=== PATIENT | male | born 1950 | race Caucasian/White ===

== ENCOUNTER 2016-05-21 05:32 | Day surgery (SDC) | payer BC ==
[~2016-05-21] VITALS: Ht 167.6 cm; Wt 159.9 kg
--- NOTE | ~2016-05-21 | OR ---
ADMIT: 05/21/2016 RM/LOC: [facility] MR#: [id number] [facility] [address] [address] [facility] [address] [place] [id number] Operative/Delivery Room Report SEX: M AGE: 65 : 1950 SURGERY DATE: 05/21/2016 SURGEON: Chas Santos MD PROCEDURES: Complete colonoscopy with polypectomy using cold biopsy forceps. PREOPERATIVE DIAGNOSES: 1. History of colon polyps. 2. Intermittent rectal bleeding. POSTOPERATIVE DIAGNOSIS: 1. A 5 mm polyp at 75 cm in transverse colon. 2. Polyps varying from 20-25 cm in the sigmoid colon, hyperplastic appearance, quite small, occasional diverticular disease. COMPLICATIONS: None immediate. INDICATION FOR PROCEDURE: He has a history of colon polyps. He has also had some intermittent rectal bleeding. Therefore, he is due for repeat surveillance colonoscopy. DESCRIPTION OF PROCEDURE: After the patient was informed the risks, benefits, and alternatives of the procedure, informed consent was obtained. He was taken back to the GI lab, placed in left lateral decubitus position. Sedation was provided by the Anesthesia service. Once appropriately sedated, rectal exam revealed good sphincter tone without palpable mass or lesions. Colonoscope was introduced per rectum, passed into the cecum without difficulty. Image #2/4 does reveal the appendiceal orifice. This was confirmed with usual landmarks. The ileocecal valve was then intubated revealing normal-appearing terminal ileum. The scope was removed back in the cecum and slowly removed. Visualization of remainder of colonic mucosa, prep ADMIT: 05/21/2016 RM/LOC: [facility] MR#: [id number] [address] [address] ANDREINA FIGUEROA [address] [place] [address] [place] [id number] Operative/Delivery Room Report SEX: M AGE: 65 : 1950 was adequate. At 75 cm in transverse colon there was noted to be a small 5 mm polyp, as revealed in image #1/4, biopsies were taken. Complete resolution of polyp. Occasional left-sided diverticular disease was noted. Then at 20-25 cm in sigmoid colon, there were two polyps, both hyperplastic in appearance approximately 4 mm size and revealed in image #3 and image #4. Biopsies were taken. Complete resolution of these polyps. One in the rectal vault, the scope was retroflexed revealing no . Scope was then straightened, procedure terminated, tolerated without complication and was transferred to the recovery room in stable condition. Follow up with Dr. Santos one week ago, sooner if needed. Chas Santos MD/ ekaterina JOB #: [id number] CC: Chas Santos, Attending Physician Holden Houston, Family Physician Holden Houston MD
--- NOTE | 2016-06-12 19:33 | HP ---
ADMIT: 05/21/2016 RM/LOC: [facility] MR#: [id number] [facility] [address] [place], [place] [address] ANDREINA FIGUEROA [address] [place] [address] Pre-OP History and Physical SEX: M AGE: 65 : 1950 DATE OF SERVICE: CHIEF COMPLAINT: History of colon polyps. HISTORY OF PRESENT ILLNESS: This is a 65-year-old, white male, normally cared for by Dr. Houston, who has a history of colon polyps. He is due for repeat evaluation. He has also had occasional blood on the paper with wiping; therefore, we are proceeding with a repeat colonoscopy. PAST MEDICAL HISTORY: Remarkable for DJD, atrial fibrillation, and obstructive sleep apnea. PAST SURGICAL HISTORY: Include bilateral total knee arthroplasties, left heel surgery, and left cataract surgery. CURRENT MEDICATIONS: Include: 1. Farheen. 2. Xarelto. 3. Elidel. 4. Lasix. 5. Diltiazem. 6. Flonase. 7. Celebrex. 8. Tylenol. 9. Aspirin. 10.Multivitamin. 11.Saw palmetto. ALLERGIES: OMNICEF. FAMILY HISTORY: Father , had coronary disease, and lung cancer. Mother , had DJD and dementia. SOCIAL HISTORY: Does not smoke. Occasional alcohol use. He is a heavy equipment operator apprentice. REVIEW OF SYSTEMS: GENERAL: No fevers or chills. HEENT: No headaches, blurred vision, or double vision. CARDIAC: No chest pains. PULMONARY: No shortness of breath. GASTROINTESTINAL: No nausea, vomiting, or diarrhea. GENITOURINARY: No dysuria, urgency, or frequency. ENDOCRINE: Polyuria or polydipsia. PSYCHIATRIC: No depression. OBJECTIVE: VITAL SIGNS: Blood pressure is 140/78, pulse 63, respirations 20, temp 98.3. GENERAL: He is in no acute distress. He is alert, oriented. HEENT: Pupils are reactive. Conjunctivae are clear. ADMIT: 05/21/2016 RM/LOC: [facility] MR#: [id number] [id number] [address] ANDREINA FIGUEROA [address] [place] [address] Pre-OP History and Physical SEX: M AGE: 65 : 1950 NECK: Soft and supple. LUNGS: With decreased breath sounds, but appear clear. HEART: Irregular. ABDOMEN: Obese, soft, nontender. EXTREMITIES: No cyanosis. No clubbing. ASSESSMENT: 1. History of colon polyps. 2. Intermittent rectal bleeding. PLAN: I did talk to him about the risks, benefits, and alternatives of colonoscopy, which would include but not limit to colon perforation requiring immediate surgery, bleeding, or incomplete exam was advised, and he understands. Handout was given, wishes to proceed. We will get this performed and report back to Dr. Houston. Chas Santos MD/ ekaterina JOB #: [id number] CC: Chas Santos, Attending Physician UNKNOWN, Family Physician
== END 2016-05-21 08:55 | disposition home or self-care (01) ==
LOC: SSS 05:32
PROC: 0DBL8ZX Excision of Transverse Colon, Via Natural or Artificial Opening Endoscopic, Diagnostic (ICD-10-PCS; principal; 2016-05-21)
PROC: 0DBN8ZX Excision of Sigmoid Colon, Via Natural or Artificial Opening Endoscopic, Diagnostic (ICD-10-PCS; principal; 2016-05-21)
DX: D12.3 Benign neoplasm of transverse colon (principal); K63.5 Polyp of colon; I48.91 Unspecified atrial fibrillation; M19.90 Unspecified osteoarthritis, unspecified site; G47.33 Obstructive sleep apnea (adult) (pediatric); Z98.42 Cataract extraction status, left eye; Z79.899 Other long term (current) drug therapy; Z79.82 Long term (current) use of aspirin; Z88.8 Allergy status to other drugs, medicaments and biological substances; Z86.010 Personal history of colon polyps